=== PATIENT | male | born 1950 | race Caucasian/White ===

== ENCOUNTER 2021-06-10 17:18 | Emergency (ER) | payer MEDICARE, BC ==
[2021-06-10 18:37] LABS: HEMOGLOBIN 15.1 gm/dl (14.0-17.5); RED BLOOD COUNT 4.8 M/UL (4.20-5.50); WHITE BLOOD COUNT 12.9 K/UL (4.5-11.0)
[2021-06-10 19:02] LABS: BUN/CREATININE RATIO 28 (0-10)
[2021-06-10] MEDS ORDERED: ROBAXIN 750 MG750 MG PO (21:05)
== END 2021-06-10 21:42 | disposition home or self-care (01) ==
LOC: ER1 17:18
PROVIDERS: Student in an Organized Health Care Education/Training Program
DX: S23.3XXA Sprain of ligaments of thoracic spine, initial encounter (principal); I10 Essential (primary) hypertension; Z90.5 Acquired absence of kidney; Z85.820 Personal history of malignant melanoma of skin; Z88.5 Allergy status to narcotic agent; X50.9XXA Other and unspecified overexertion or strenuous movements or postures, initial encounter
CPT/HCPCS: 71275; 80053; 81001; 83690; 85025; 96374; 96375; 99284; J2270; J2405; Q9967